=== PATIENT | male | born 1945 | race Caucasian/White ===

== ENCOUNTER 2022-07-21 08:30 | Outpatient (RCR) | payer MEDICARE, OTHER, SELFPAY | END 2022-08-18 08:24 | disposition home or self-care (01) | PROVIDERS: PCP Family Medicine; Visit Provider Family Medicine | DX: M17.11 Unilateral primary osteoarthritis, right knee (principal); Z51.89 Encounter for other specified aftercare | CPT/HCPCS: 97110; 97140; 97161 ==

== ENCOUNTER 2023-04-01 01:55 | Emergency (ER) | payer MEDICARE, OTHER, SELFPAY ==
[2023-04-01 02:01] VITALS: BP 172/88; PULSE 64; RESP 16; TEMP 35.6; O2SAT 97
--- NOTE | 2023-04-01 02:05 | ED.GENADULT ---
HPI - General Adult General Time Seen by Provider: 02:05 Date Seen: 04/01/23 Chief complaint: Hypertension Stated complaint: High blood pressure Time Seen by Provider: 04/01/23 01:57 Source: patient, family, RN notes reviewed and old records reviewed Mode of arrival: ambulatory Limitations: no limitations History of Present Illness HPI narrative: 77-year-old male who comes in today with sensation of ?lungs feeling full. Patient says he woke up feeling like he could get a good breath in on further questioning describes abdominal bloating and pressure. Denies chest pain, shortness of breath. No nausea, vomiting, diarrhea. Last bowel movement was just prior to coming in, has been passing gas. Says abdomen feels full. Took his blood pressure was higher than usual and so came to the emergency department. Related Data Previous Rx's Medication Instructions Recorded sucralfate 1 gram tablet (Carafate) 1 g PO QID #20 tabs 04/01/23 Allergies Allergy/AdvReac Type Severity Reaction Status Date / Time No Known Drug Allergies Allergy Verified 04/01/23 03:08 [facility] Social History Non-prescribed substance use: denies use Exam Narrative: Exam Narrative: General: Well-developed and well-nourished, no acute distress Head: Atraumatic and normocephalic Eyes: Pupils are equal reactive, extraocular motions intact, conjunctiva clear ENT: External nose and ears are normal, posterior pharynx without erythema or exudate Neck: No midline cervical tenderness, full spontaneous range of motion the neck, trachea midline, no adenopathy Heart: Regular rate and rhythm no murmurs or thrills Lungs: Clear to auscultation bilaterally without wheezes or crackles Abdomen: Soft, mildly distended with mild diffuse tenderness, high-pitched bowel sounds Musculoskeletal: No tenderness, deformity, or edema Neurologic: Awake, alert, and oriented x3, no gross focal neurologic deficits, cranial nerves intact as tested Psych: Mood and affect are appropriate Skin: No rashes Const: Vital Signs, click to edit/add: Vital Signs - 24 hr 04/01/23 02:01 04/01/23 04:23 Temperature 96.0 F L Pulse Rate [Right Pulse Oximeter] 64 60 Respiratory Rate 16 16 Blood Pressure [Le ft Upper Arm] 172/88 H 144/82 H Pulse Oximetry 97 97 Oxygen Delivery Me thod Room Air Room Air Course Course Hospital Course: Patient seen examined, prior records reviewed. Patient presents today with vague complaints, says he feels like his lungs are to full but then on further questioning sounds like he has some abdominal bloating and fullness. He does wear CPAP at night. On exam, blood pressure is elevated but asymptomatic with this. Abdomen high-pitched bowel sounds and some distension, concern for bowel obstruction or ileus. Labs and CT scan ordered. Reevaluation(s) Time of Reevaluation #1: 03:20 Reevaluation #1: Labs independently interpreted by me reassuring with normal CBC, normal hepatic panel, normal basic panel, normal lipase. CT scan independently interpreted by me demonstrates some mild gastric distension, no other acute findings. Time of Reevaluation #2: 03:39 Reevaluation #2: Reviewed radiology interpretation of CT scan which shows questionable gallbladder wall thickening. Patient reexamined and has no right upper quadrant tenderness, normal white blood cell count, normal hepatic panel and normal lipase. Time of Reevaluation #3: 05:06 Reevaluation #3: Troponin is negative, ultrasound negative. Patient still for discharge with Zofran and liquid diet for 24 hours, follow-up primary care in 1-2 days. Vital Signs Vital signs: Initial Vital Signs Temperature 96.0 F L 04/01/23 02:01 Temperature Source Temporal Artery Scan 04/01/23 02:01 Pulse Rate 64 04/01/23 02:01 Pulse Rhythm Regular 04/01/23 02:01 Respiratory Rate 16 04/01/23 02:01 Blood Pressure 172/88 H 04/01/23 02:01 Blood Pressure Mean 116 H 04/01/23 02:01 Blood Pressure Position Semi-Fowlers 04/01/23 02:01 Pulse Oximetry 97 04/01/23 02:01 Oxygen Delivery Method Room Air 04/01/23 02:01 Vital Signs Temperature 96.0 F L 04/01/23 02:01 Pulse Rate 64 04/01/23 02:01 Respiratory Rate 16 04/01/23 02:01 Blood Pressure 172/88 H 04/01/23 02:01 Pulse Oximetry 97 04/01/23 02:01 Oxygen Delivery Method Room Air 04/01/23 02:01 Temperature 96.0 F L 04/01/23 02:01 Pulse Rate 60 04/01/23 04:23 Respiratory Rate 16 04/01/23 04:23 Blood Pressure 144/82 H 04/01/23 04:23 Pulse Oximetry 97 04/01/23 04:23 Oxygen Delivery Method Room Air 04/01/23 04:23 Medical Decision Making Lab Data Labs: Lab Results 04/01/23 04/01/23 Range/Units 02:11 03:45 WBC 10.90 (4.50-11.00) K/uL RBC 4.21 L (4.30-5.90) m/uL Hgb 13.9 (13.5-17.5) gm/dL Hct 42.0 (37.0-53.0) % MCV 100 (80-100) fL MCH 33 (26-34) pg MCHC 33 (32-36) gm/dL RDW Coeff of Felix 14.1 (11.5-15.5) % Plt Count 215 (140-440) K/uL Neut % (Auto) 43.5 (42.0-72.0) % Lymph % (Auto) 45.8 H (20-44) % Marshall % (Auto) 8.0 (0.0-11.0) % Eos % (Auto) 1.8 (0.0-7.0) % Baso % (Auto) 0.3 (0.0-3.0) % Neut # (Auto) 4.74 (1.7-7.0) K/uL Lymph # (Auto) 5.00 H (0.90-2.90) K/uL Marshall # (Auto) 0.90 (0.00-0.90) K/UL Eos # (Auto) 0.20 (0.00-0.50) K/uL Baso # (Auto) 0.03 (0.00-0.30) K/uL Sodium 142 (135-149) mmol/L Potassium 3.9 (3.6-5.1) mmol/L Chloride 106 (96-114) mmol/L Carbon Dioxide 24 (20-32) mmol/L BUN 20 (7-30) mg/dL Creatinine 0.8 (0.5-1.5) mg/dL Estimated GFR 91 ml/min Glucose 130 H (60-115) mg/dL Calcium 9.1 (8.4-10.6) mg/dL Total Bilirubin 0.4 (0.1-1.5) mg/dL Direct Bilirubin 0.0 (0.0-0.5) mg/dL AST 35 (12-35) U/L ALT 43 (4-50) U/L Alkaline Phosphatase 58 (40-150) U/L Troponin I < 0.01 L (0.01-0.04) ng/mL Total Protein 7.6 (6.0-8.3) g/dL Albumin 4.5 (3.3-5.0) g/dL Lipase 94 (23-300) U/L Lab Acknowledgement Test Added Discharge Plan Discharge Clinical Impression: Abdominal bloating Patient Disposition: Home, Self-Care Condition: Stable Instructions: Gas and Bloating (ED) Additional Instructions: Take medications as prescribed Liquid diet for 24 hours, then advance as tolerated Follow-up with your primary care doctor in 1-2 days for recheck Activity Level: No Restrictions Discharge Diet: Regular and Full Liquid Prescriptions: New sucralfate [Carafate] 1 gram tablet 1 g PO QID Qty: 20 0RF Follow Up/Referrals: Donte Martínez MD [Primary Care Provider] - Stand Alone Forms: [facility] Info Instructions
--- NOTE | 2023-04-01 02:08 | CRLHL7_ITS ---
For Patients: As a result of the Century Cures Act, medical imaging exams and procedure reports are released immediately into your electronic medical record. You may view this report before your referring provider. If you have questions, please contact your health care provider. INDICATION: Bloating. High pitched bowel sounds. Nausea. Hypertension. TECHNIQUE: CT abdomen and pelvis acquired with 116 cc Isovue 370 IV contrast. COMPARISON: None. FINDINGS: Lower chest: Unremarkable. Liver: Unremarkable. Normal in size and attenuation. No suspicious masses. Gallbladder and bile ducts: Gallbladder wall may be mildly thickened. No biliary dilatation. A 3 cm cystic lesion it is positioned between the pancreatic head, duodenum, and gallbladder visualized on series 2, image 41. Pancreas: Unremarkable. No mass or inflammation. Spleen: Unremarkable. Normal in size. No masses. Adrenal glands: Unremarkable. No nodules. Kidneys: Unremarkable. No suspicious masses, stones, or hydronephrosis. GI tract: Unremarkable. Normal in caliber. No sign of mass or inflammation. Normal appendix. Vasculature: Abdominal aorta is normal in caliber. Mesenteric arteries are patent. Lymph nodes: No lymphadenopathy. Peritoneum/Abdominal Wall: Unremarkable. No sign of mass or infiltration. No free air or significant free fluid. Pelvis: Unremarkable. Bones: Unremarkable for age. IMPRESSION: 1. GI tract normal in caliber and appearance. No obstructive changes. 2. Questionable gallbladder wall thickening. Consider right upper quadrant ultrasound if there is concern for biliary colic. 3. 3 cm simple appearing cyst position between the gallbladder, duodenum and pancreatic head. Please note that all CT scans at this facility use dose modulation, iterative reconstruction, and/or weight-based dosing when appropriate to reduce radiation dose to as low as reasonably achievable. Dictated by Titus Baldwin MD @ 04/01/2023 3:30:44 AM (Electronically Signed)
[2023-04-01 02:27] LABS: Basophils Absolute Auto 0.03 K/uL (0.00-0.30); Basophils Percent Auto 0.3 % (0.0-3.0); Eosinophils Percent Auto 1.8 % (0.0-7.0); Hemoglobin* 13.9 gm/dL (13.5-17.5); Immature Granulocytes Abs Auto 0.07 K/uL (0.00-0.30); Immature Granulocytes Pct Auto 0.6 %; Lymphocytes Percent Auto 45.8 % (20-44); Mean Corpuscular HGB Conc 33 gm/dL (32-36); Mean Corpuscular Hemoglobin 33 pg (26-34); Mean Corpuscular Volume 100 fL (80-100); Neutrophils Absolute Auto 4.74 K/uL (1.7-7.0); Neutrophils Percent Auto 43.5 % (42.0-72.0); Platelet Count* 215 K/uL (140-440); RDW Coefficient of Variation % 14.1 % (11.5-15.5); Red Blood Count 4.21 m/uL (4.30-5.90)
[2023-04-01 02:29] LABS: Slide Review Reflex No
[2023-04-01 02:41] LABS: Albumin* 4.5 g/dL (3.3-5.0); Chloride* 106 mmol/L (96-114); Sodium* 142 mmol/L (135-149)
[2023-04-01 02:42] LABS: Potassium* 3.9 mmol/L (3.6-5.1)
[2023-04-01 02:44] LABS: Alkaline Phosphatase* 58 U/L (40-150); Aspartate Amino Transferase* 35 U/L (12-35); Bilirubin Total* 0.4 mg/dL (0.1-1.5); Blood Urea Nitrogen* 20 mg/dL (7-30); Carbon Dioxide* 24 mmol/L (20-32); Glucose* 130 mg/dL (60-115); Lipase* 94 U/L (23-300); Total Protein* 7.6 g/dL (6.0-8.3)
[2023-04-01 02:45] LABS: Alanine Aminotransferase* 43 U/L (4-50); Calcium* 9.1 mg/dL (8.4-10.6)
[2023-04-01 02:46] LABS: Creatinine* 0.8 mg/dL (0.5-1.5); Estimated Glomerular Filt Rate 91 ml/min
--- NOTE | 2023-04-01 03:45 | CRLHL7_ITS ---
For Patients: As a result of the Century Cures Act, medical imaging exams and procedure reports are released immediately into your electronic medical record. You may view this report before your referring provider. If you have questions, please contact your health care provider. INDICATION: f/u CT possible GB wall thickening: TECHNIQUE: Ultrasound abdomen limited.: COMPARISON: Same day CT abdomen pelvis. : IMPRESSION: Gallbladder: Gallbladder wall upper limits of normal measuring 2.9 mm. No pericholecystic fluid to suggest acute cholecystitis. Exophytic intraluminal echogenicity, measuring 9 x 7 mm. Differential for this includes adherent stones, sludge, or polyp. Color Doppler of this was not performed. Recommend follow-up in 6-12 months to assess stability. Common bile duct: Difficult to visualize but appears to be within normal limits, measuring approximately 6 mm. Dictated by Ashutosh Hardy MD @ 04/01/2023 6:34:41 AM (Electronically Signed)
[2023-04-01] MEDS: ONDANSETRON 2 MG/ML inj 4 MG IVP (03:52)
[2023-04-01 04:16] LABS: Troponin I* < 0.01 ng/mL (0.01-0.04)
[2023-04-01 04:23] VITALS: BP 144/82; PULSE 60; RESP 16; O2SAT 97
== END 2023-04-01 05:34 | disposition home or self-care (01) ==
PROVIDERS: Emergency Provider Family Medicine; PCP Family Medicine
DX: I10 Essential (primary) hypertension (principal); R14.0 Abdominal distension (gaseous)
CPT/HCPCS: 36415; 74177; 76705; 80048; 80076; 83690; 84484; 85025; 96374; 99283; 99284; 99285; J2405; Q9967

== ENCOUNTER 2025-06-13 09:45 | Outpatient (RCR) | payer MEDICARE, OTHER, SELFPAY | END 2025-07-06 13:58 | disposition home or self-care (01) | PROVIDERS: PCP Family Medicine; Visit Provider Orthopaedic Surgery | DX: Z47.1 Aftercare following joint replacement surgery (principal); Z96.652 Presence of left artificial knee joint; M25.562 Pain in left knee; Z51.89 Encounter for other specified aftercare | CPT/HCPCS: 97110; 97140; 97161 ==